=== PATIENT | female | born 1975 | race African-American/Black ===

== ENCOUNTER 2020-08-11 09:56 | Emergency (ER) | payer BC ==
[~2020-08-11] VITALS: Ht 154.9 cm; Wt 82.6 kg
[2020-08-11] MEDS ORDERED: AZITHROMYCIN250 MG PO (11:39)
[2020-08-11 12:03] VITALS: BP 129/80
== END 2020-08-11 12:07 | disposition home or self-care (01) ==
LOC: FSED 10:15
DX: R07.9 Chest pain, unspecified (principal); I10 Essential (primary) hypertension; J02.9 Acute pharyngitis, unspecified
CPT/HCPCS: 71045; 80053; 82553; 84484; 85025; 93005; 99283